=== PATIENT | female | born 1975 | race Caucasian/White ===

== ENCOUNTER 2016-08-29 10:02 | Emergency (ER) | payer BC, OTHER ==
[~2016-08-29] VITALS: Ht 167.6 cm; Wt 118.0 kg
[2016-08-29 10:12] VITALS: BP 134/89; PULSE 97; RESP 15; TEMP 98.1; O2SAT 98
[2016-08-29] MEDS ORDERED: PRIL20CA9 PO (11:08)
[2016-08-29] MEDS ORDERED: VORT1TAB3 PO (11:13)
[2016-08-29] MEDS ORDERED: DIVA250ER PO (11:13)
[2016-08-29] MEDS ORDERED: MONT10TA2 PO (11:13)
[2016-08-29] MEDS ORDERED: ABIL5TAB6 PO (11:13)
[2016-08-29] MEDS ORDERED: RIZA10TA2 PO (11:13)
[2016-08-29] MEDS ORDERED: CYCL1TAB29 PO (11:13)
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
[2016-08-29] MEDS ORDERED: HYDR-3516 PO (12:04)
[2016-08-29] MEDS ORDERED: CYCL5TAB PO (12:04)
== END 2016-08-29 12:18 | disposition home or self-care (01) ==
LOC: PHED 10:02 → PHEFT 12:18
DX: S29.019A Strain of muscle and tendon of unspecified wall of thorax, initial encounter (principal); V43.52XA Car driver injured in collision with other type car in traffic accident, initial encounter; Y93.9 Activity, unspecified; Y92.9 Unspecified place or not applicable; Y99.9 Unspecified external cause status
CPT/HCPCS: 72040; 72072; 99284